=== PATIENT | male | born 1965 | race Caucasian/White ===

== ENCOUNTER 2021-02-22 01:49 | Day surgery (SDC) | payer BC, SELFPAY ==
[2021-02-09 14:15] VITALS: BMI 28.8
--- NOTE | 2021-02-21 14:22 | PM.HPGS ---
History of Present Illness History of Present Illness Consent: Risks, benefits, and alternatives have been discussed and questions answered. Patient agrees to proceed with procedure. Chief complaint: neoplasm, family hx of colon ca Narrative: Oneil Villafana is a 55 year old male who was referred for colon cancer screening. He has a family history of colon cancer. his father and paternal grandfather had colon cancer Review of Systems Review of Systems: All systems reviewed & are unremarkable except as noted in HPI and below PMFSH Social History Social History Alcohol intake: current Drinks per week: 4 Living arrangements: with family Spiritual care concerns: No Meds Home Medications and Allergies Home Medications Medication Instructions Recorded Confirmed Type No Home Medications 02/09/21 02/09/21 History Allergies Allergy/AdvReac Type Severity Reaction Status Date / Time No Known Allergies Allergy Mild Verified 02/22/21 06:37 Exam Resp: Auscultation: clear to auscultation bilaterally Cardio: Rate: regular rate Rhythm: regular rhythm GI: GI Palp: Yes Soft to palpation and No Tenderness to palpation present (GI) Assessment and Plan Assessment and plan (1) Colon cancer screening: Code(s): Z12.11 - Encounter for screening for malignant neoplasm of colon Status: Acute Assessment and Plan: Colonoscopy with possible biopsy or polypectomy or cautery or injection of substances.
[2021-02-22 06:37] VITALS: BMI 27.6
[2021-02-22 06:39] VITALS: BP 111/80; PULSE 76; RESP 16; TEMP 36.3; O2SAT 96
[2021-02-22] MEDS: LACTATED RINGERS 1,000 ML 30 ML IV CONT (06:45)
--- NOTE | 2021-02-22 07:51 | WPDANESEPPF ---
Anes - Initial Pre Proc Eval Procedure: Operation Date: 02/22/21 08:00 Proposed Procedures p Screening Colonoscopy - Louis Clarke MD Date/Time: 02/22/21 07:51 Surgeon: Louis Clarke MD Pre Op Diagnosis: neoplasm, family hx of colon ca Patient Data Age: 55 Gender: M Height: 1.73 m Weight: 82.5 kg Last Vital Signs Temp 97.3 F L 02/22/21 06:39 Pulse 76 02/22/21 06:39 Resp 16 02/22/21 06:39 BP 111/80 02/22/21 06:39 Pulse Ox 96 02/22/21 06:39 Allergies Allergy/AdvReac Type Severity Reaction Status Date / Time No Known Allergies Allergy Mild Verified 02/22/21 06:37 Home Medications Medication Instructions Recorded Confirmed Type No Home Medications 02/09/21 02/09/21 History Patient hx anesthesia problems: none Family hx anesthesia problems: none Results Review: All pre-operative results and documents have been reviewed as part of the pre-operative evaluation. [facility] Past Medical History Medical History (Updated 02/22/21 @ 07:46 by Jose Julian MD) TANVIR (obstructive sleep apnea) Social History Social History Alcohol intake: current Drinks per week: 4 Living arrangements: with family Spiritual care concerns: No Anes - Eval Final PreProcedure Day of Procedure 02/22/21 07:51 Patient weight: normal Heart: regular rate and rhythm Lungs: clear to auscultation Airway: Mallampati scale class II Neurological: alert and oriented Last oral intake: >/= 8 hours ASA classification: II Emergent: no Anesthetic plan: proceed Anesthesia type and monitoring: general GIVS and standard monitoring Results Review: All pre-operative results and documents have been reviewed as part of the pre-operative evaluation. Informed Consent: The patient's anesthetic plan and its attendant risks and benefits were discussed with the patient/family/POA. Questions were solicited and answers provided to the satisfaction of the patient/family/POA.
[2021-02-22 08:17] VITALS: BP 97/64; PULSE 68; RESP 18; O2SAT 98
[2021-02-22 08:27] VITALS: BP 101/72; PULSE 68; RESP 20; O2SAT 99
[2021-02-22 08:37] VITALS: BP 115/78; PULSE 68; RESP 29; O2SAT 100
== END 2021-02-22 08:45 | disposition home or self-care (01) ==
PROVIDERS: PCP Internal Medicine; Visit Provider Internal Medicine Gastroenterology
PROC: 0DJD8ZZ Inspection of Lower Intestinal Tract, Via Natural or Artificial Opening Endoscopic (ICD-10-PCS; CPT 45378; principal; 2021-02-22 08:00)
DX: Z12.11 Encounter for screening for malignant neoplasm of colon (principal); Z80.0 Family history of malignant neoplasm of digestive organs; G47.33 Obstructive sleep apnea (adult) (pediatric)
CPT/HCPCS: 45378; J2704; J7120

== ENCOUNTER 2022-06-11 18:07 | Emergency (ER) | payer OTHER, BC, SELFPAY ==
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
[2022-06-11 18:43] VITALS: BP 137/89; PULSE 94; RESP 14; TEMP 36.7; O2SAT 98
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
[2022-06-11] MEDS: NAPROXEN 250 MG TABLET 500 MG PO (19:52)
== END 2022-06-11 20:24 | disposition home or self-care (01) ==
PROVIDERS: Emergency Provider Emergency Medicine; PCP Internal Medicine
DX: S29.011A Strain of muscle and tendon of front wall of thorax, initial encounter (principal); G47.33 Obstructive sleep apnea (adult) (pediatric); V43.52XA Car driver injured in collision with other type car in traffic accident, initial encounter
CPT/HCPCS: 71046; 71100; 99283; A9270